=== PATIENT | male | born 1995 | race Asian ===

== ENCOUNTER 2018-11-21 22:36 | Emergency (ER) | payer SELFPAY ==
[~2018-11-21] VITALS: Ht 177.8 cm; Wt 104.3 kg
[2018-11-21 22:41] VITALS: BP 132/77
--- NOTE | 2018-11-21 22:44 | NUR ---
TO LOBBY A/W BED AMBULATORY
--- NOTE | 2018-11-22 00:10 | NUR ---
PT AMBULATED TO ER BED 04
--- NOTE | 2018-11-22 00:10 | NUR ---
23 Y/O MALE PATIENT PRESENTS TO THE ED WITH COMPLAINTS OF INSOMNIA AND ANXIETY. PT REPORTS THAT HE CANNOT SLEEP AT NIGHT [id number], AND FELT ANXIOUS AT WORK YESTERDAY. PT A&O TO PERSON, PLACE, TIME, AND SITUATION. RESTING QUIETLY WHILE AWAITING MD TO ASSES. CONTINUE TO MONITOR.
--- NOTE | 2018-11-22 00:58 | NUR ---
Dr. Tijerina examining patient.
--- NOTE | 2018-11-22 00:58 | NUR ---
Note bakari in EDM - 11/22/18 at 0125 by SARA 23 Y/O MALE PATIENT PRESENTS TO THE ED WITH COMPLAINTS OF INSOMNIA AND ANXIETY. PT REPORTS THAT HE CANNOT SLEEP AT NIGHT [id number], AND FELT ANXIOUS AT WORK YESTERDAY. PT A&O TO PERSON, PLACE, TIME, AND SITUATION. RESTING QUIETLY WHILE AWAITING MD TO ASSES. CONTINUE TO MONITOR.
--- NOTE | 2018-11-22 01:30 | NUR ---
María villegas in ED - 11/22/18 at 0157 by [email or web address] PT STATES PAIN MILDLY REDUCED TO 8/10
[2018-11-22 01:45] VITALS: BP 145/74
--- NOTE | 2018-11-22 01:45 | NUR ---
DISCHARGE PAPERS GIVEN TO PT. PT STATES ANXIETY REDUCED AND PLANS ON MAKING "LIFE PLANS" WITH HIS BROTHERS WHO ARE CAUSING HIM STRESS. NO RX GIVEN. VSS UP DISCHARGE. INSTRUCTED TO F/U WITH PVP AND WHEN TO RETURN TO ER. PT VERBALLIZED UNDERSTANDING OF DC INSTRUCTIONS. ALL QUESTOINS ANSWERED.
== END 2018-11-22 01:45 | disposition home or self-care (01) ==
LOC: MED 22:36
DX: G47.00 Insomnia, unspecified (principal); F43.9 Reaction to severe stress, unspecified; F32.9 Major depressive disorder, single episode, unspecified
CPT/HCPCS: 99283